=== PATIENT | female | born 1960 | race Caucasian/White ===

== ENCOUNTER 2017-05-20 19:43 | Emergency (ER) | payer OTHER ==
[~2017-05-20] VITALS: Ht 160 cm; Wt 63.6 kg
[2017-05-20] MEDS ORDERED: ACYC200C8 PO (19:59)
[2017-05-20] MEDS ORDERED: AMLO5TAB2 PO (19:59)
[2017-05-20] MEDS ORDERED: LASI20TA PO (19:59)
[2017-05-20] MEDS ORDERED: VITA100067 PO (19:59)
[2017-05-20] MEDS ORDERED: INDA125TA PO (19:59)
[2017-05-20] MEDS ORDERED: K-TA10TA2 PO (19:59)
[2017-05-20] MEDS ORDERED: COLA100C5 PO (19:59)
[2017-05-20] MEDS ORDERED: LISI40TAB PO (19:59)
[2017-05-20] MEDS ORDERED: NAPR250T4 PO (19:59)
[2017-05-20] MEDS ORDERED: IBUP200C10 PO (19:59)
[2017-05-20] MEDS ORDERED: ESTR1TAB PO (19:59)
[2017-05-20] MEDS ORDERED: diphenhydrAMINE INJ 50MG/ML VIAL (J1200) IV STA (21:48)
[2017-05-20] MEDS ORDERED: NS 1,000 ML IV ONE (22:00)
[2017-05-20] MEDS ORDERED: KETOROLAC 30 MG/ML VIAL (J1885) IV ONE (22:00)
[2017-05-20] MEDS ORDERED: METOCLOPRAMIDE INJ 10MG/2ML VIAL (J2765) IV ONE (22:00)
[2017-05-20 23:35] VITALS: BP 139/66
[2017-05-20] MEDS ORDERED: ZOFR4TAB3 PO (23:36)
== END 2017-05-20 23:40 | disposition home or self-care (01) ==
LOC: M ED 19:43
DX: G43.909 Migraine, unspecified, not intractable, without status migrainosus (principal); I10 Essential (primary) hypertension
CPT/HCPCS: 96374; 96375; 99283; J1885; J2765

== ENCOUNTER → 2022-04-08 | Outpatient (CLI) | payer OTHER ==
[~2022-04-08] MED LIST: ACYC200C8 PO; AMLO1TAB24 PO; COLA100C5 PO; ESTR1TAB PO; IBUP200C25 PO; INDA125TA PO; K-TA10TA2 PO; LASI20TA3 PO; LISI40TA4 PO; NAPR-849 PO; VITA100067 PO; ZOFR4TAB14 PO
[2022-04-08 17:30] LABS: IMMUNOGLOBULIN M 79.4 MG/DL (40-230)
== END ==
LOC: M WUC 15:32
PROVIDERS: ATTEND Internal Medicine
DX: Z87.01 Personal history of pneumonia (recurrent) (principal); R05.9 Cough, unspecified; R06.2 Wheezing

== ENCOUNTER → 2025-05-25 | Outpatient (REF) | payer MEDICARE, OTHER ==
[~2025-05-25] MED LIST changes: +INDA1.253 PO; -INDA125TA PO; -K-TA10TA2 PO; +LISI40TA10 PO; -LISI40TA4 PO; +POTA-165 PO
== END ==
LOC: M LAB REF 11:57
PROVIDERS: ATTEND Internal Medicine
DX: N18.31 Chronic kidney disease, stage 3a (principal); E87.6 Hypokalemia